=== PATIENT | female | born 1960 | race Caucasian/White ===

== ENCOUNTER 2018-04-21 20:19 | Emergency (ER) | payer SELFPAY ==
[~2018-04-21] VITALS: Ht 154.9 cm; Wt 76.1 kg
[2018-04-21 20:23] VITALS: BP 181/93; PULSE 77; RESP 18; TEMP 98.2; O2SAT 100
[2018-04-21] MEDS ORDERED: LIDOCAINE HCL 1% PF 30 ML VIAL ONE (20:55)
[2018-04-21] MEDS ORDERED: LIDOCAINE HCL 1% 10 ML VIAL INFIL ONE (21:00)
[2018-04-21] MEDS ORDERED: AUGM875T3 PO (22:35)
[2018-04-21] MEDS ORDERED: IBUP-232 PO (22:35)
--- NOTE | 2018-04-21 22:38 | PD ---
HPI Chief Complaint: Injury Time Seen by Provider: 20:51 Travel History International Travel<30 days: No Contact w/Intl Traveler<30days: No Traveled to known affect area: No History of Present Illness HPI 57-year-old female with no significant past medical history presents to the emergency room complaining of right big toe pain for the last 2 weeks. Patient states she cut her right big toe nail too short after which she started feeling pain at the tip inner side of the toe. Patient also noticed some pus drainage from around the toe nail edge especially in the morning with some surrounding redness. Patient denies any fever, chills, history of diabetes, history of ingrown toenail, previous problems at the same toe. PFSH Past Medical History Medical History: Denies Significant Hx Diminished Hearing: No Influenza Vaccination: No ?: Not LMP: POST MENAPAUSAL Past Surgical History Gynecologic Surgery: Yes (oopherectomy) Social History Alcohol Use: Yes (occ) Tobacco Use: No Substance Use: No Allergies-Medications (Allergen,Severity, Reaction): Coded Allergies: No Known Allergies (Unverified , 04/21/18) Reported Meds & Prescriptions Reported Meds & Active Scripts Active Augmentin (Amoxicillin-Clavulanate) 875-125 Mg Tab 1 Tab PO BID Ibuprofen 600 Mg Tab 600 Mg PO Q8HR PRN Review of Systems Except as stated in HPI: all other systems reviewed are Neg General / Constitutional: No: Fever, Chills Eyes: No: Blurred Vision, Redness, Pain HENT: No: Rhinorrhea, Congestion, Neck Stiffness, Neck Pain, Earache Cardiovascular: No: Chest Pain or Discomfort, Palpitations, Dyspnea on exertion Respiratory: No: Cough, Shortness of Breath, Wheezing Gastrointestinal: No: Nausea, Vomiting, Diarrhea, Abdominal Pain, Hematochezia , Constipation Genitourinary: No: Dysuria Musculoskeletal: No: Myalgias Skin: No Rash, No Hives Neurologic: No: Weakness, Dizziness, Syncope, Headache, Slurred Speech, Seizures Psychiatric: No: Suicidal Ideations Physical Exam Narrative Vital Signs Date Time Temp Pulse Resp B/P (MAP) Pulse Ox O2 Delivery O2 Flow Rate FiO2 04/21/18 20:23 98.2 77 18 181/93 (122) 100 GENERAL: Patient is alert and oriented -3 SKIN: Focused skin assessment warm/dry. HEAD: Atraumatic. Normocephalic. EYES: Pupils equal and round. No scleral icterus. No injection or drainage. ENT: No nasal bleeding or discharge. Mucous membranes pink and moist. NECK: Trachea midline. No JVD. CARDIOVASCULAR: Regular rate and rhythm. No murmur appreciated. RESPIRATORY: No accessory muscle use. Clear to auscultation. Breath sounds equal bilaterally. GASTROINTESTINAL: Abdomen soft, non-tender, nondistended. Hepatic and splenic margins not palpable. MUSCULOSKELETAL: No obvious deformities. No clubbing. No cyanosis. No edema. Right big toe shows some redness at the lateral and anterior aspect of the toe. It is tender to palpation with surrounding erythema. No purulent discharge noted NEUROLOGICAL: Awake and alert. No obvious cranial nerve deficits. Motor grossly within normal limits. Normal speech. PSYCHIATRIC: Appropriate mood and affect; insight and judgment normal. Data Data Last Documented VS Vital Signs Date Time Temp Pulse Resp B/P (MAP) Pulse Ox O2 Delivery O2 Flow Rate FiO2 04/21/18 20:23 98.2 77 18 181/93 (122) 100 Orders Orders Lidocaine 1% Inj (Xylocaine 1% Inj) (04/21/18 21:00) Wound Culture And Gram Stain (04/21/18 20:53) Lidocaine Pf 1% Inj (Xylocaine-Mpf 1% In (04/21/18 20:55) Ed Discharge Order (04/21/18 22:37) [facility] Medical Decision Making Medical Screen Exam Complete: Yes Emergency Medical Condition: Yes Medical Record Reviewed: Yes Differential Diagnosis Ingrown toenail, toe infection, cellulitis, osteomyelitis Narrative Course Patient was stable during the ER course. Patient tolerated the I&D procedure well. Will discharge home on antibiotics and pain medications Procedures Procedure Narrative After the risks and benefits were discussed the following procedure was performed: INCISION AND DRAINAGE OF ABSCESS: The area was prepped and was sterilely draped. A subcutaneous wheal of 1% Xylocaine with a total number 5 mL was used to anesthetize the area and a digital block of the right big toe. The area was properly anesthetized. A number 11 scalpel was used to make a 1-cm incision across the area of the abscess. Cultures were obtained. The abscess was drained an irrigated with normal saline. Quarter inch iodoform packing was placed in the wound. Sterile dressing applied. Patient advised to have packing removed in two days. Diagnosis Primary Impression: Toe infection Referrals: Alexsander Gayle DPM 2 days Patient Instructions: General Instructions, Ingrown Nail (ED), Paronychia (ED) Scripts Amoxicillin-Clavulanate (Augmentin) 875-125 Mg Tab 1 TAB PO BID for Infection, #20 TAB 0 Refills Prov: Aren Robbins MD 04/21/18 Ibuprofen (Ibuprofen) 600 Mg Tab 600 MG PO Q8HR Y for PAIN, #15 TAB 0 Refills Prov: Aren Robbins MD 04/21/18 Disposition: 01 DISCHARGE HOME Condition: Stable Aren Robbins MD Apr 21, 2018 22:38
== END 2018-04-21 22:46 | disposition home or self-care (01) ==
LOC: PHEFT 20:19
DX: L02.611 Cutaneous abscess of right foot (principal); B95.61 Methicillin susceptible Staphylococcus aureus infection as the cause of diseases classified elsewhere; M79.674 Pain in right toe(s)
CPT/HCPCS: 10061; 86403; 87070; 87186; 87205